=== PATIENT | female | born 1930 | race Caucasian/White ===

== ENCOUNTER 2017-05-26 08:55 | Emergency (ER) | payer MEDICARE, OTHER, MEDICAID ==
[~2017-05-26] VITALS: Ht 168.9 cm; Wt 68.2 kg
[2017-05-26 09:07] VITALS: BP 139/83; PULSE 87; RESP 16; O2SAT 98
--- NOTE | 2017-05-26 09:13 | ED.REPORT ---
HPI-Extremity Problem Lower Date of Service May 26, 2017 ED Provider: Cornelio Lopez MD The pt is a 86 y/o female w/ a hx of mild memory disturbance and osteoporosis presenting to the ED c/o L second toe pain onset last night. Last night she experienced excruciating pain, and reports her toe going flat, and had to put a piece of padding under the toe to relieve the pain. Currently the pain is described as aching, squeezing, and radiates to the ankle. Denies fever, nausea , or vomiting. The pt describes dropping a glass on her toe 4 years ago, which cut the extensor tendon, but there was no fracture. She also had x-rays taken two weeks ago by her clay modeler 2 weeks ago and was told there were no fractures. Nursing Notes Stated Complaint: FOOT PAIN Chief Complaint: L 2nd toe pain Nursing Notes Reviewed: Yes Allergies: Uncoded Allergies: MANY. UNKNOWN (Allergy, Unknown, 04/06/16) General Time Seen by MD: 09:12 Chief Complaint Other (L second toe pain ) Hx Obtained From: Patient Arrived By: Walk-in Onset Occurred: Yesterday Symptom Duration: Since onset Recent Healthcare: No recent hospitalization, Recent doctor visit Similar Sx Previous: Yes Past Medical History Past Medical History Notes: PCP: Dr. Mely Garcia According to family (and patient seems to confirm) she is under alleged multi-year delusion of having Crohn's, but has been allegedly extensively evaluated and allegedly does not. Apparently she has a history of severe agitation and aggressiveness over the topic which per family has been major issue at [facility]. 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) GERD (Gastroesophageal Refkux Disease) H/O: Hysterectomy Mild Intermittent Asthma Chronic Low Back Pain Pulmonary nodules LPRD (laryngopharyngeal reflux disease) POAG (primary open-angle glaucoma) History of TIA Chronic constipation fistula of hand Osteoporosis Seizures CVA Reports: Transient ischemic attack Reports: Seizure disorder Past Surgical History Hysterectomy L 2nd toe tendon surgery Reports: Appendectomy, Tonsillectomy Smoking History Never Smoker Social History Alcohol Use: "Social" Ambulatory Status Independent Review of Systems + L 2nd toe pain w/ decreased ROM; Constitutional: Denies: Fever Complete sys rev & neg: except as marked. GI: Denies: Nausea, Vomiting Physical Exam Initial Vital Signs Vital Signs (First) Date Time Temp Pulse Resp B/P Pulse Ox O2 Delivery O2 Flow Rate FiO2 05/26/17 09:07 36.8 87 16 139/83 98 Room Air Initial VS: Reviewed General/Constitutional: Well-developed, Well-nourished Head / Eyes: Atraumatic, Normocephalic, PERRL ENT: Mucous membranes moist, Conjunctiva normal, No scleral icterus Neck: Supple, Non-tender, Full range of motion Respiratory: Breath sounds normal, Clear to auscultation, No respiratory distress Cardiovascular: Regular rate & rhythm, Heart sounds normal, Intact distal pulses Upper Extremities: Vascular intact, Neuro intact, No swelling, No tenderness Skin: Warm, Dry, No cyanosis Neurologic: Alert, Oriented, Nonfocal Psychiatric: Mood/affect normal, Behavior normal, Normal thought content Lower Extremity / Pelvis / MS: Full range of motion, No deformity, Neurologic intact, Vascular intact Ankle / Foot: No deformity Pt is able to flex the L 2nd toe but ROM is limited secondary to pain; No erythema or discharge; Neurovascular intact; No tenderness on ROM; Interpretation & Diagnostics PROCEDURE: X-RAY TOES, TWO VIEWS IMPRESSION: 1. No fracture or dislocation. If clinical symptoms persist or clinical suspicion for pathology is high, a repeat examination in 7-10 days, or advanced imaging such as MRI is suggested for further evaluation. 2. Osteopenia. Dictated by: Chelsea Saavedra M.D. on 05/26/2017 at 10:41 Approved by: Chelsea Saavedra M.D. on 05/26/2017 at 10:44 Re-Eval/Medical Decision Med Decision/Clinical Course 86-year-old female who is 4 years status post left second toe tendon repair presenting complaining of pain in that toe today. She denies any trauma. She reports her toe went flat yesterday. She is able to flex and extend the left toe to some extent though possibly limited due to pain. Cannot completely rule out tendon pathology. There is no evidence of infection. And there is no tenderness on range of motion. X-ray no acute fracture. Patient will follow up with podiatry. Return precautions given. Source of Hx: Old records Re-Evaluation/Progress : Time of Eval: 11:16 Re-Evaluation/Progress Note: Pt rechecked. Discussed reassuring imaging results. Informed pt of plan for treatment. Pt understands and agrees with plan for treatment. F/U instructions and RTER warnings given. All questions addressed. Counseled Regarding: Diagnosis, Lab results, Need for follow-up, When/why to return to ED Discharge & Departure Impression: Primary Impression: Toe pain, left Disposition: Home Discharge Condition All VS Reviewed: Yes Condition: Stable Additional Instructions: Thank for you entrusting us with your care today. Your x-ray shows no signs of a fracture. You may take Tylenol and Ibuprofen as needed for the pain. Please see the table setter, Dr. Macias, for further follow up concerning your toe. Please return to the emergency department if you experience any fevers, redness , discharge, worsening pain, nausea vomiting, other new or worsening symptoms. I hope you feel better soon. Referrals: Sihva Martínez DO (PCP) Sen Macias DPM Scribe Attestation Portions of this note were transcribed by Jean-Claude Garrett. I, Dr. Lopez personally performed the history, physical exam and medical decision-making; I reviewed and confirmed the accuracy of the information in the transcribed note. copies to: Shiva Martínez DO; Sen Macias DPM, Ben M MD May 26, 2017 09:13 Jean-Claude Garrett May 26, 2017 09:29
--- NOTE | 2017-05-26 10:46 | DRSVH ---
PROCEDURE: X-RAY TOES, TWO VIEWS INDICATIONS: Left 2nd toe pain s/p surgery TECHNIQUE: 3 views of the second toe(s) acquired. COMPARISON: None. FINDINGS: Bones: No fractures or dislocations. There is soft opinion. No suspicious bony lesions. Soft tissues: No suspicious soft tissue densities. IMPRESSION: 1. No fracture or dislocation. If clinical symptoms persist or clinical suspicion for pathology is h igh, a repeat examination in 7-10 days, or advanced imaging such as MRI is suggested for further eval uation. 2. Osteopenia. Dictated by: Chelsea Saavedra M.D. on 05/26/2017 at 10:41 Approved by: Chelsea Saavedra M.D. on 05/26/2017 at 10:44
[2017-05-26 11:30] VITALS: BP 138/78; PULSE 74; RESP 20; O2SAT 98
== END 2017-05-26 11:32 | disposition home or self-care (01) ==
LOC: SED 08:55
DX: M79.675 Pain in left toe(s) (principal); J45.909 Unspecified asthma, uncomplicated; K21.9 Gastro-esophageal reflux disease without esophagitis; Z86.73 Personal history of transient ischemic attack (TIA), and cerebral infarction without residual deficits; Z87.828 Personal history of other (healed) physical injury and trauma; Z90.710 Acquired absence of both cervix and uterus; Z90.89 Acquired absence of other organs; Z98.890 Other specified postprocedural states